=== PATIENT | female | born 1960 | race Caucasian/White ===

== ENCOUNTER 2018-06-12 22:01 | Inpatient (IN) ==
[2018-06-12] MEDS ORDERED: Gadolinium Contrast Agent (WT Based) IV PRN (22:17)
[2018-06-12] MEDS ORDERED: Ibuprofen 600 MG TABLET PO ONE (22:18)
--- NOTE | 2018-06-12 22:37 | Emergency Department Note ---
Disposition Clinical Impression: Paralysis of both lower limbs, Bilateral leg paresthesia Disposition: Admitted As Inpatient Condition: Fair Referrals: Alexis Gaytan DO [Primary Care Provider] - Forms: ED Satisfaction Letter Time of Disposition: 01:42 Neuro HPI - General Chief Complaint: ED Neuro Symptoms/Deficit Stated Complaint: Numbness in Legs Time Seen by Provider: 06/12/18 22:04 Source: patient, family, EMS Mode of arrival: ambulatory Limitations: no limitations Nursing Notes Reviewed: Yes Vital Signs Reviewed: Yes - History of Present Illness HPI Narrative: 58-year-old female presented to the emergency department with bilateral leg numbness and weakness. Patient states that on Friday she started new medication Lexapro within her only new changes. She said that she was at work going to the bathroom when she said also and she started vomiting and had acute pain 8 out of 10 in her legs bilaterally and thenthey were numb and she was unable walk and unable to move them. She is not having any back pain says the pain is only in the legs radiating down the legs. She screams 8 out of 10 sharp stabbing pain. She says she does not have any feeling in them and is unable to walk or move them at all. Patient has no other acute findings no other pain anywhere else no headaches no recent falls no recent trauma. She has no loss of bladder or bowel movements. There is no headaches, blurry vision, neck pain, back pain, chest pain, shortness of breath, abdominal pain, fevers, chills, changes in balance, pain with urination. - Related Data Home Medications: Home Medications Medication Instructions Recorded Confirmed Escitalopram [Lexapro] 10 mg PO DAILY 06/12/18 06/12/18 Allergies/Adverse Reactions: Allergies Allergy/AdvReac Type Severity Reaction Status Date / Time No Known Allergies Allergy Verified 06/12/18 22:16 All systems ED: reviewed and negative except as stated. Review of Systems: As Per HPI Past Medical History - Past Medical History Attestation: Yes The following information was validated with the patient. Source: patient Medical history: Reports: diabetes, GERD, hypertension Psychiatric history: Reports: anxiety G[employer] C[employer] MECH[employer]IC history: Reports: no [employer] MECH[employer]IC history - Social History Smoking Status: Never smoker Smokeless Tobacco Status: No Alcohol use: Reports: none Drug use: Reports: none Physical Exam - General Limitations: no limitations General appearance: alert, in distress - Head Head exam: atraumatic, normocephalic, normal inspection - Eye Eye exam: Present: normal appearance, PERRL, EOMI - ENT ENT exam: normal exam, normal oropharynx, mucous membranes moist - Neck Neck exam: Present: normal inspection, full ROM, trachea midline - Chest Chest inspection: Present: normal inspection, symmetric chest wall rise - Respiratory Respiratory exam: Present: normal lung sounds bilaterally. Absent: respiratory distress, accessory muscle use - Cardiovascular Cardiovascular exam: Present: regular rate, normal rhythm, normal heart sounds - Abdominal Exam Abdominal exam: Present: soft, Non-Tender, normal bowel sounds. Absent: tenderness, distention, guarding, rebound, rigidity - Extremities Exam Extremities exam: Absent: tenderness, pedal edema - Expanded Upper Extremity Exam Shoulder exam: Present: normal inspection, full ROM Arm exam: Present: normal inspection, full ROM Elbow exam: Present: normal inspection, full ROM Forearm/Wrist exam: Present: normal inspection, full ROM Hand exam: Present: normal inspection, full ROM Vascular exam: Normal: capillary refill, radial pulse - Expanded Lower Extremity Exam Neurovascular/Tendon exam: Present: normal capillary refill, motor deficit, sensory deficit, other (Did use needle and poked both lower extremities patient did not wince or say that she felt that him at all.). Absent: pulse deficit Gait: unable to bear weight - Back Exam Back exam: Present: normal inspection, full ROM. Absent: tenderness, CVA tenderness (R), CVA tenderness (L) - Neurological Exam Neurological exam: Present: alert, oriented X3 - Skin Skin exam: Present: warm, dry, intact, normal color Course Course Narrative: Patient does not have focal sided weakness there is no signs of a stroke due to this stroke alert was not called. Patient only has bilateral numbness and motor deficit. Due to this we will have to get an MR with and without contrast of the thoracic and lumbar spine. Patient will be given Motrin for pain control will be given Ativan prior to the procedure for anxiety. We will also get basic labs including CBC and BMP. Disposition pending results Vital Signs Temperature 97.5 F L 06/12/18 22:05 Pulse Rate 72 06/12/18 22:05 Respiratory Rate 20 06/12/18 22:05 Blood Pressure 176/92 06/12/18 22:05 O2 Sat by Pulse Oximetry 100 06/12/18 22:05 Temperature 97.5 F L 06/12/18 22:05 Pulse Rate 76 06/13/18 00:19 Respiratory Rate 16 06/13/18 00:19 Blood Pressure 176/84 06/13/18 00:19 O2 Sat by Pulse Oximetry 96 06/13/18 00:19 Oxygen Delivery Oxygen Delivery Room Air Neuro Symptoms/Deficit - MDM Narrative Medical decision making narrative: MR came back no acute findings. Patient did have a hypokalemia as well had an acute kidney injury this most likely is not secondary to patient's paralysis or paresthesias or weakness. I reevaluated patient she still unable to have any motor sensation in her lower extremities from the hips down. She still has no sensation. Due to this and being unable to walk we felt patient did need to be admitted. I did replace patient's potassium as well as give a liter of fluids for the AK I as well as hypokalemia. This most likely is peripheral there is no there is low likelihood this could be central as it is bilaterally in the lower extremities there is no unilateral focal deficits. So CT head was thought about but not ordered. I spoke with the hospitalist Dr. Ace who agreed to a dmit the patient to their service. Patient admitted in stable condition. Lumbar Spine MRI 06/12/18 22:17 IMPRESSION: 1. Motion degraded examination. 2. Mild central spinal canal narrowing at L4-L5. 3. Mild bilateral foraminal narrowing at L5-S1, left side greater than right. 4. Please note that the spine was labeled such that there is a transitional S1 type vertebral body. D/ / Godfrey Casiano MD / Godfrey Casiano MD Interpreting Provider: Godfrey Casiano MD Thoracic Spine MRI 06/12/18 22:17 IMPRESSION: No acute abnormality of the thoracic spine. D/ / Christian Sher / Christian Sher Interpreting Provider: Christian Sher - Medical Records Medical records reviewed: Yes I reviewed the patient's medical records. - Lab Data Lab results reviewed: Yes I reviewed the patient's lab results. Result diagrams: 06/12/18 22:38 06/12/18 22:38 Lab Results 06/12/18 06/12/18 Range/Units 22:38 22:38 WBC 17.1 H (4.3-11.1) K/mcL RBC 4.30 (3.82-4.97) M/mcL Hgb 9.3 L (11.5-15.4) g/dL Hct 31.2 L (35.3-44.9) % MCV 72.6 L (83.0-100.0) fL MCH 21.6 L (28.0-33.3) pg MCHC 29.8 L (31.6-35.5) g/dL RDW 15.5 H (11.5-14.5) % Plt Count 440 H (140-400) K/mcL MPV 9.7 (9.4-12.4) fL Immature Gran % 2.2 (0-4) % Seg Neutrophils % 79.5 % Lymphocytes % 10.6 % Monocytes % 7.1 % Eosinophils % 0.2 % Basophils % 0.4 % Neutrophils # 13.6 H (1.6-8.9) K/mcL Lymphocytes # 1.8 (0.6-4.6) K/mcL Monocytes # 1.2 (0.0-1.3) K/mcL Eosinophils # 0.0 (0.0-0.6) K/mcL Basophils # 0.1 (0.0-0.2) K/mcL Sodium 134 L (136-145) mEq/L Potassium 3.4 L (3.5-5.1) mEq/L Chloride 97 L (98-107) mEq/L Carbon Dioxide 13 L (23-29) mEq/L BUN 25 H (6-20) mg/dL Creatinine 2.33 H (0.60-1.20) mg/dL Est GFR ( Amer) 26 L (> 60) Est GFR (Non-Af Amer) 22 L (> 60) BUN/Creatinine Ratio 11 (6-26) Glucose 289 H (70-105) mg/dL Calculated Osmolality 293 (280-300) Calcium 9.9 (8.6-10.3) mg/dL - Radiology Data Radiology results reviewed: Yes I reviewed the patient's radiology results. TPA Checklist - LKW: 3-4.5 hrs Add. Warnings/Precautions Patient/family understanding: The patient/family members have been counseled and understood the risk, benefit, and alternatives of treatment.
[2018-06-12 22:57] LABS: Basophils # 0.1 K/mcL (0.0-0.2); Basophils % 0.4 %; Eosinophils % 0.2 %; Hematocrit 31.2 % (35.3-44.9); Hemoglobin 9.3 g/dL (11.5-15.4); Immature Granulocytes % 2.2 % (0-4); Lymphocytes # 1.8 K/mcL (0.6-4.6); Lymphocytes % 10.6 %; Mean Corpuscular HGB Conc 29.8 g/dL (31.6-35.5); Mean Corpuscular Hemoglobin 21.6 pg (28.0-33.3); Mean Corpuscular Volume 72.6 fL (83.0-100.0); Mean Platelet Volume 9.7 fL (9.4-12.4); Monocytes # 1.2 K/mcL (0.0-1.3); Monocytes % 7.1 %; Neutrophils # 13.6 K/mcL (1.6-8.9); Platelet Count 440 K/mcL (140-400); Red Cell Distribution Width 15.5 % (11.5-14.5); Segmented Neutrophils % 79.5 %
[2018-06-12] MEDS ORDERED: Ondansetron ODT 4 MG TAB.RAPDIS SL ONE (22:58)
[2018-06-12] MEDS ORDERED: *HR* LORazepam 2 MG/ML VIAL IVP ONE ×2 (23:03→23:48)
--- NOTE | 2018-06-12 23:10 | Emergency Department Note ---
Disposition Clinical Impression: Paralysis of both lower limbs, Bilateral leg paresthesia Disposition: Admitted As Inpatient Condition: Fair General Adult HPI - General Chief complaint: ED Neuro Symptoms/Deficit Stated complaint: Numbness in Legs Time Seen by Provider: 06/12/18 22:04 Source: patient, family, EMS Mode of arrival: ambulatory Limitations: no limitations Nursing Notes Reviewed: Yes Vital Signs Reviewed: Yes - History of Present Illness Pain Scale: 10 - Related Data Home Medications Medication Instructions Recorded Confirmed Escitalopram [Lexapro] 10 mg PO DAILY 06/12/18 06/12/18 Allergies Allergy/AdvReac Type Severity Reaction Status Date / Time No Known Allergies Allergy Verified 06/12/18 22:16 Past Medical History - Past Medical History Medical history: Reports: diabetes, GERD, hypertension Psychiatric history: Reports: anxiety [employer] WORKER history: Reports: no [employer] WORKER history - Social History Smoking Status: Never smoker Smokeless Tobacco Status: No Alcohol use: Reports: none Drug use: Reports: none Physical Exam - General Limitations: no limitations General appearance: alert, in distress Course Vital Signs Temperature 97.5 F L 06/12/18 22:05 Pulse Rate 72 06/12/18 22:05 Respiratory Rate 20 06/12/18 22:05 Blood Pressure 176/92 06/12/18 22:05 O2 Sat by Pulse Oximetry 100 06/12/18 22:05 Temperature 97.5 F L 06/12/18 22:05 Pulse Rate 76 06/13/18 00:19 Respiratory Rate 16 06/13/18 02:43 Blood Pressure 174/66 06/13/18 02:43 O2 Sat by Pulse Oximetry 96 06/13/18 00:19 Oxygen Delivery Oxygen Delivery Room Air Medical Decision Making - Lab Data Lab results reviewed: Yes I reviewed the patient's lab results. Result diagrams: 06/12/18 22:38 06/12/18 22:38 Lab Results 06/12/18 06/12/18 Range/Units 22:38 22:38 WBC 17.1 H (4.3-11.1) K/mcL RBC 4.30 (3.82-4.97) M/mcL Hgb 9.3 L (11.5-15.4) g/dL Hct 31.2 L (35.3-44.9) % MCV 72.6 L (83.0-100.0) fL MCH 21.6 L (28.0-33.3) pg MCHC 29.8 L (31.6-35.5) g/dL RDW 15.5 H (11.5-14.5) % Plt Count 440 H (140-400) K/mcL MPV 9.7 (9.4-12.4) fL Immature Gran % 2.2 (0-4) % Seg Neutrophils % 79.5 % Lymphocytes % 10.6 % Monocytes % 7.1 % Eosinophils % 0.2 % Basophils % 0.4 % Neutrophils # 13.6 H (1.6-8.9) K/mcL Lymphocytes # 1.8 (0.6-4.6) K/mcL Monocytes # 1.2 (0.0-1.3) K/mcL Eosinophils # 0.0 (0.0-0.6) K/mcL Basophils # 0.1 (0.0-0.2) K/mcL Sodium 134 L (136-145) mEq/L Potassium 3.4 L (3.5-5.1) mEq/L Chloride 97 L (98-107) mEq/L Carbon Dioxide 13 L (23-29) mEq/L BUN 25 H (6-20) mg/dL Creatinine 2.33 H (0.60-1.20) mg/dL Est GFR ( Amer) 26 L (> 60) Est GFR (Non-Af Amer) 22 L (> 60) BUN/Creatinine Ratio 11 (6-26) Glucose 289 H (70-105) mg/dL Calculated Osmolality 293 (280-300) Calcium 9.9 (8.6-10.3) mg/dL - Radiology Data Radiology results reviewed: Yes I reviewed the patient's radiology results. Lumbar Spine MRI 06/12/18 22:17 IMPRESSION: 1. Motion degraded examination. 2. Mild central spinal canal narrowing at L4-L5. 3. Mild bilateral foraminal narrowing at L5-S1, left side greater than right. 4. Please note that the spine was labeled such that there is a transitional S1 type vertebral body. D/ / Godfrey Casiano MD / Godfrey Casiano MD Interpreting Provider: Godfrey Casiano MD Thoracic Spine MRI 06/12/18 22:17 IMPRESSION: No acute abnormality of the thoracic spine. D/ / Christian Sher / Christian Sher Interpreting Provider: Christian Sher Attestation Statement - Attestation Attestation: I, Gil James MD, personally evaluated this patient and discussed their management with the resident physician. I reviewed the resident's note and agree with the documented findings, medical decision making, and plan of care. 58-year-old female presents to the emergency department with a complaint of acute onset of numbness and weakness in the lower extremities about 9 PM this evening. She denies any fall or injury. She states that she was at work and was standing when her leg suddenly started feeling numb and she had her coworkers assisted her into the cooler. Then her legs became totally numb and she could not move them. She does complain of pain in both legs from the hips down. No back pain. No abdominal pain. She has had no difficulty with urination or bowel movements. No incontinence of stool or urine. No fever. On examination patient is a well-developed well-nourished female in no acute distress. She is alert and oriented 3. There is no cyanosis or diaphoresis. Sounds are clear and equal bilaterally. Heart regular rate and rhythm. Abdomen soft and nontender with normal bowel sounds. No thoracic or lumbar tenderness noted. Patient's lower extremities are flaccid and she will not move or lift her lower extremities. She will not wiggle her toes. He denies any sensation from the hips down bilaterally. Labs reviewed. MRI of thoracic and lumbar spine obtained and showed no acute abnormality to account for patient's symptoms. The hospitalist, Dr. Ace, was consulted and accepted admission of the patient.
[2018-06-12 23:12] LABS: Calcium 9.9 mg/dL (8.6-10.3); Potassium 3.4 mEq/L (3.5-5.1)
[2018-06-12] MEDS ORDERED: *HR* FentaNYL (PF) 100 MCG/2 ML VIAL IVP ONE (23:49)
[2018-06-13] MEDS ORDERED: 0.9 % Sodium Chloride 1,000 ML IVC ONE ×2 (01:17→06:09)
[2018-06-13] MEDS ORDERED: Potassium Chloride Elixir 20 MEQ/15 ML UDC PO ONE (02:30)
[2018-06-13 03:55] LABS: Basophils # 0.1 K/mcL (0.0-0.2); Basophils % 0.2 %; Hematocrit 28.8 % (35.3-44.9); Hemoglobin 8.7 g/dL (11.5-15.4); Immature Granulocytes % 2.2 % (0-4); Lymphocytes # 1.4 K/mcL (0.6-4.6); Lymphocytes % 6.7 %; Mean Corpuscular HGB Conc 30.2 g/dL (31.6-35.5); Mean Corpuscular Hemoglobin 22.3 pg (28.0-33.3); Mean Corpuscular Volume 73.7 fL (83.0-100.0); Mean Platelet Volume 9.9 fL (9.4-12.4); Monocytes # 0.9 K/mcL (0.0-1.3); Monocytes % 4.6 %; Neutrophils # 17.6 K/mcL (1.6-8.9); Nucleated Red Blood Cells 0.1 /100 WBC (0); Platelet Count 386 K/mcL (140-400); Red Blood Count 3.91 M/mcL (3.82-4.97); Red Cell Distribution Width 15.7 % (11.5-14.5); Segmented Neutrophils % 86.3 %
[2018-06-13] MEDS ORDERED: Naloxone 0.4 MG/ML INJ IVP PRN (04:09)
[2018-06-13] MEDS ORDERED: *HR* OxyCODONE Immed Rel 5 MG TABLET PO PRN (04:09)
[2018-06-13] MEDS ORDERED: *HR* HYDROcodone/Acet 5/325 mg TABLET PO PRN (04:09)
[2018-06-13] MEDS ORDERED: Acetaminophen 325 MG TABLET PO PRN (04:09)
[2018-06-13] MEDS ORDERED: Dextrose Gel 15 GM/37.5 ML TUBE PO PRN ×2 (04:10)
[2018-06-13] MEDS ORDERED: *HR* Dextrose 50 % in Water (Syg) 50 ML SYRINGE IVP PRN (04:10)
[2018-06-13] MEDS ORDERED: D5% in Water 1,000 ML IVC PRN (04:10)
[2018-06-13 04:15] LABS: Calcium 9.1 mg/dL (8.6-10.3); Potassium 4.1 mEq/L (3.5-5.1)
[2018-06-13] MEDS ORDERED: 0.9 % Sodium Chloride 1,000 ML IVC SCH (04:15)
[2018-06-13 05:32] LABS: Bilirubin,Urine Negative (Negative); Blood,Urine Large (Negative); Clarity,Urine Cloudy (Clear); Color,Urine Yellow (Yellow); Glucose,Urine (UA) >=1000 mg/dL (Normal); Ketones,Urine Trace mg/dL (Negative); Leukocyte Esterase,Urine Negative (Negative); Nitrite,Urine Negative (Negative); PH,Urine 5.5 pH Units (5.0-8.0); Protein,Urine 100 mg/dL (Neg-Trace); Specific Gravity,Urine 1.019 (1.010-1.025); Urobilinogen,Urine Normal (Normal)
[2018-06-13 05:34] LABS: RBC,Urine 15-30 per hpf (0-3); WBC,Urine 0-3 per hpf (0-3)
[2018-06-13] MEDS ORDERED: Isovue-370 500 ML INFUS..BTL IV ONE ×3 (05:41→06:08)
[2018-06-13 05:42] LABS: Amphetamine Screen,Urine Negative ng/mL (Cutoff=1000); Barbiturate Screen,Urine Negative ng/mL (Cutoff=200); Benzodiazepines Screen,Urine Negative ng/mL (Cutoff=200); Cannabinoid Screen,Urine Negative ng/mL (Cutoff = 50); Cocaine Screen,Urine Negative ng/mL (Cutoff= 300); Opiate Screen,Urine Negative ng/mL (Cutoff=300); Phencyclidine Screen,Urine Negative ng/mL (Cutoff=25)
[2018-06-13 05:46] LABS: Bacteria,Urine Few per hpf (None-Few); Hyaline Casts,Urine Few per lpf (None-Few); Squamous Epithelial Cell,Urine Few per lpf (None-Few)
--- NOTE | 2018-06-13 06:31 | Internal Med History&Physical ---
Date of Encounter: 06/13/18 Time of Encounter: 05:45 Internal Medicine - H&P: HPI Chief complaint: Lower extremity weakness/numbness History of present illness: Ms. Alonzo is a 58 year old female with a past medical history of hypertension, GERD and diabetes who presents to the ED with a chief complaint of bilateral lower extremity numbness and weakness. Patient states that she was in her usual state of health working at her job as a service counter cashier into the evening. Ar ound 8:45 she states that she had something sweet to eat. Around 9 PM she went to go use the bathroom and vomited up some of which she had just eaten. Shortly after using the bathroom, patient noted numbness and tingling in her lower extremities bilaterally followed by significant pain 10 out of 10 in her legs below the knees. Patient states she went to sit down and the pain encompassed the entire legs. She has had progressive weakness and numbness in her lower legs since. Her boss contacted her and EMS and was she brought into the hospital. Upon arrival patient was noted to be hypertensive with a blood pressure of 176/92. Physical examination in the ED was notable for flaccid paralysis and paresis of her lower extremities bilaterally. Labs significant for an elevated white count, anemia, elevated creatinine. MRI of the thoracic and lumbar spine was performed which showed mild central spinal canal narrowing at L4-L5 and mild bilateral foraminal narrowing at L5-S1. Per ED report patient had bilateral lower extremity pulses and warmth of her extremities to palpation. I was contacted by the nurse around 5:24 AM, prior to my assessment of the patient, who informed me that he was unable to obtain pulses bilaterally in the patient's lower extremities via Doppler. When I arrived to assess the patient, she was lying in bed in no acute distress. Her lower extremities were cold to palpation. She was unable to move either limb. Sensation was absent from the mid thigh down to the feet bilaterally. I was not able to palpate pulses from the femoral arteries down. Due to concern for a vascular compromise, I reached out to Dr. Richards with vascular surgery to discuss the case and the decision was made to obtain a CT angiogram of the chest down despite the patient being in acute kidney failure. CT angios obtained from the chest down which showed occlusion of the aorta proximal to the bifurcation into the common iliacs as well as PE. Dr. Valdovinos reviewed the imaging and is evaluating the patient for possible surgical intervention versus transfer to [place]. Past Med Surg Social Fam HX - Past Medical History Medical history: diabetes, GERD, hypertension Additional medical history: brain tumor Psychiatric history: anxiety - Past Surgical History Additional surgical history: brain tumor removed, left shoulder scope (02/07) - Social History Smoking Status: Never smoker Smokeless Tobacco Status: No Alcohol use: none Drug use: none - Family History Father Living Status: Hx Family Cardiac Disorders: Yes (Coronary artery disease) Hx Family Respiratory Disorders: Yes (COPD) Hx Family Cancer: Yes (Lung cancer) Hx Family Endocrine Disorder: Yes (Hypertension) Mother Race: Cause of : Pneumonia Hx Family Cardiac Disorders: Yes (Coronary artery disease) Hx Family Respiratory Disorders: Yes (COPD) Hx Family Endocrine Disorder: Yes (Hypertension) Internal Medicine - H&P: Meds Escitalopram [Lexapro] 10 mg PO DAILY 06/12/18 [History] Aspirin Enteric Coated [Aspirin EC] 325 mg PO DAILY tablet. 06/13/18 [Rx] Heparin 3,100 unit IVP Q6H PRN vial 06/13/18 [Rx] Heparin 6,200 unit IVP Q6HR PRN vial 06/13/18 [Rx] metFORMIN [Glucophage] 500 mg PO BIDWM 06/13/18 [History] Allergy/AdvReac Type Severity Reaction Status Date / Time No Known Allergies Allergy Verified 06/12/18 22:16 All Systems PM: A 10-system review of systems was performed and is negative for pertinent findings except as documented above in the HPI. - Constitutional Constitutional: no chills, no fever(s), no night sweats - EENT Eyes: no change in vision, no discharge, no pain, no photophobia Ears: no ear discharge, no ear pain, no tinnitus Nose, mouth and throat: no dysphagia, no nasal discharge, no neck pain, no sore throat - Cardiovascular Cardiovascular ROS IM: no chest pain, no diaphoresis, no dyspnea, no lightheadedness, no palpitations, no syncope - Respiratory Respiratory: no cough, no dyspnea, no wheezing, no excessive phlegm production - Gastrointestinal Gastrointestinal: no abdominal pain, no diarrhea, no hematemesis, no hematochezia, no melena, no nausea, no vomiting - Genitourinary Genitourinary: no change in urinary stream, no dysuria, no flank pain, no hematuria - Musculoskeletal Musculoskeletal ROS IM: no numbness, no tingling - Integumentary Integumentary IM: no rash, no unusual bruising - Neurological Neurological ROS: no confusion, no convulsions, no focal weakness, no numbness, no tingling, no tremor(s) - Hematologic/Lymphatic Hematologic/Lymphatic: no easy bruising - Constitutional Vitals: Temp Pulse Resp BP Pulse Ox 97.6 F 77 16 179/89 2 06/13/18 04:30 06/13/18 04:30 06/13/18 04:30 06/13/18 04:30 06/13/18 04:30 Exam: General: Alert and oriented 3; flat affect Skin:Normal color, no rash, no lesions. HEENT:EOM, pupils equal, round and reactive. Cardiovascular:Normal S1 & S2, no rubs, murmurs or gallops. No JVD. Pulse regular. Lungs:Normal breath sounds, no wheezes or crackles. Abdomen:Soft, non-tender, no rigidity. Extremities:No deformity, cool to palpation; no edema; female oral, popliteal, DP and PT pulses absent bilaterally Neurological: Flaccid paralysis from the waist down. Sensation absent from the mid thigh distally. Radial nerves II through XII intact. Muscle strength in the upper extremities 5 out of 5 bilaterally. Pulses:Carotid and radial pulses normal +2. Rest of the physical exam is non contributory Internal Med - H&P Results - Labs CBC & Chem 7: 06/13/18 03:34 06/13/18 03:34 Labs: Short CBC 06/12/18 06/13/18 Range/Units 22:38 03:34 WBC 17.1 H 20.4 H (4.3-11.1) K/mcL Hgb 9.3 L 8.7 L (11.5-15.4) g/dL Hct 31.2 L 28.8 L (35.3-44.9) % Plt Count 440 H 386 (140-400) K/mcL Neutrophils # 13.6 H 17.6 H (1.6-8.9) K/mcL BMP 06/12/18 06/13/18 22:38 03:34 Sodium 134 L 134 L Potassium 3.4 L 4.1 Chloride 97 L 101 Carbon Dioxide 13 L 16 L BUN 25 H 28 H Creatinine 2.33 H 2.31 H Glucose 289 H 275 H Calcium 9.9 9.1 Urine 06/13/18 Range/Units 05:15 Urine Color Yellow (Yellow) Urine Clarity Cloudy A (Clear) Urine pH 5.5 (5.0-8.0) pH Units Ur Specific [place] 1.019 (1.010-1.025) Urine Protein 100 H (Neg-Trace) mg/dL Urine Glucose (UA) >=1000 H (Normal) mg/dL - Impressions ITS Impressions Lumbar Spine MRI 06/12/18 22:17 IMPRESSION: 1. Motion degraded examination. 2. Mild central spinal canal narrowing at L4-L5. 3. Mild bilateral foraminal narrowing at L5-S1, left side greater than right. 4. Please note that the spine was labeled such that there is a transitional S1 type vertebral body. D/ / Godfrey Casiano MD / Godfrey Casiano MD Interpreting Provider: Godfrey Casiano MD Thoracic Spine MRI 06/12/18 22:17 IMPRESSION: No acute abnormality of the thoracic spine. D/ / Christian Sher / Christian Sher Interpreting Provider: Christian Sher - Assessment and plan (1) Bilateral leg paresthesia Status: Acute Assessment and plan: Acute onset b/l lower extremity parasthesias from the mid thigh distally in the setting of infrarenal occlusion of the aorta. Patient continues not to have loss no sensation from the mid thighs distally. Patient reports that she recently started Lexipro on Friday. Affect remains flat and does not seem to express much concern for her paresis or paralysis. Case discussed with Dr. Richards with Vascular surgery who cannot find a clear correlation at this time between the two. Although he is confident he can successfully revascularize the patient, he is unsure if this will resolve her parasthesia. Patient will likely need neurology on board as well. Await further surgical evaluation. (2) Paralysis of both lower limbs Status: Acute Assessment and plan: Flacid paralysis of the LE b/l below the waist. MRI thoracic/lumbar spine shows no acute abnormality of the thoracic spine with mild central spinal canal narrowing at L4-L5. Mild bilateral foraminal narrowing at L5-S1, left side greater than right. Per ED, they reported warmth and distal pulses on their initial assessment. This is clearly not the case on my initial assessment. See HPI. She remains A/O x3 but affect is flat and appears to be indifferent to her current situation. Etiology of her paralysis remains unclear, aside from correlation with Aortic occlusion. See above for management. (3) Occlusion of aorta Status: Acute Assessment and plan: Patient found to have absent palpable pulses b/l from the femoral arteries distally. We were able to obtain pulses on doppler of the femoral arteries b/l and right popliteal. CT Aorta with runoff shows Complete occlusion of the distal abdominal aorta due to occlusive mural thrombus. Underlying etiology is not determined. The extent of thrombosis is difficult to evaluate with very limited contrast distal to the initial site of occlusion. Reconstitution of the right external iliac artery due to collateral flow with a normal runoff to the level of the popliteal artery. Evaluation of vessels below the right popliteal artery can not be provided as the contrast bolus is not reached beyond this point. Reconstitution in the left lower extremity is not demonstrated. Case discussed with Vascular. Await decision for revascularization here vs transfer. (4) Acute kidney injury Status: Acute Assessment and plan: Acute kidney injury with what appears to be in the setting of normal renal function at baseline. Etiology at this time unclear as occlussion of aorta is infrareanal and there appears to have normal perfusion of Kidneys based on CTA. Patient was given fluid bolus in the ED with repeat BMP showing minimal improvement. Patient was given an additional fluid bolus of [address] scan and now appears to be clinical congested from a respiratory standpoint. Will hold fluids for now with revascularization taking precedence at this point. (5) Pulmonary embolus Status: Acute Qualifiers: Pulmonary embolism type: other Chronicity: acute Acute cor pulmonale presence: without acute cor pulmonale Qualified Code(s): I26.99 - Other pulmonary embolism without acute cor pulmonale (6) Diabetes Status: Chronic Qualifiers: Diabetes mellitus type: type 2 Diabetes mellitus computer terminal operator insulin use: without computer terminal operator use Diabetes mellitus complication status: with circulatory complication Diabetes mellitus complication detail: with other circulatory complications Qualified Code(s): E11.59 - Type 2 diabetes mellitus with other circulatory complications (7) Essential hypertension Status: Chronic - Time Spent With Patient Total time spent is greater than 50% in coordination of care (as documented) at patient's floor/unit and/or counseling patient:
--- NOTE | 2018-06-13 06:38 | Event Note ---
Date of Encounter: 06/13/18 Time of Encounter: 06:35 The patient was unable to be physically assessed in the ER prior to arrival to the floor. On my discussion with the ER physicians now, they state that at the time of their exam her lower extremities were warm and had pulses. Therefore her current cold, pale and absent DP & TP pulses seems to be a new and evolving occurrence warranting urgent vascular evaluation. Dr Esquivel has contacted the vascular surgeon integration lead and a CT angio with runoff will be done STAT.
[2018-06-13] MEDS ORDERED: Insulin LISPRO 300 UNITS/3 ML VIAL SQ SCH (07:30)
[2018-06-13 07:57] VITALS: BP 143/79
--- NOTE | 2018-06-13 08:21 | Discharge Summary ---
<Papi Chávez N - Last Filed: 06/13/18 08:19> - NOTES TO OUTPATIENT PROVIDER Notes to Outpatient Provider: follow up patient after surgery. Patient will require outpatient follow up with vascular surgery. Orders not resulted at time of discharge: Pending orders 06/13/18 02:08 Drug Screen, Urine [UCHEM] Stat 06/13/18 04:17 MR head/brain wo con [MR] Routine EV carotid duplex imaging BI Routine 06/13/18 04:22 EV echocardiogram Routine 06/13/18 05:41 US retroperitoneal comp [US] Routine Date of Encounter: 06/13/18 Time of Encounter: 08:19 - Discharge Diagnosis (1) Occlusion of aorta Priority: Primary Status: Acute Assessment and Plan: Per vascular surgery recommendations, patient will be transported to facility with higher level of care for urgent surgical evaluation and possibly intervention for the aortic thrombus. On physical exam patient's distal extremities are cold, no pulses palpable, they appear pale. (2) Pulmonary embolus Priority: Secondary Status: Acute Assessment and Plan: CT angiogram revealed findings of right lower lobar pulmonary artery acute segmental pulmonary embolus. Patient is currently not complaining of any chest pain or shortness of breath. Hospital course: Patient is 58-year-old female with a history of hypertension and diabetes who presented to the emergency department with one-day history of bilateral lower extremity flaccidity and paresthesias. Patient states that she was at work at an approximate 9 PM when she initially noted that she had numbness in both legs. This was followed by inability to move either extremity a few minutes later and severe pain. Patient was transported to the emergency department via EMS where an MRI thoracic and lumbar spine was performed which was unremarkable for any significant spinal compression. Upon arrival to the floor, nursing reported the patient had cold and pulseless extremities. She was evaluated by the admitting physician and a Doppler confirmed the patient did not have pulses in either lower extremity. Vascular surgery was called and recommended immediate CT angiogram with runoff of the aorta and b/l lower extremities. CTA showed complete occlusion of the distal abdominal aorta with mural thrombus. There was also an incidental acute pulmonary embolism of segmental branches in the right lower lobe pulmonary artery as well, patient is not experiencing any chest pain or shortness of breath at this time. Patient meets all criteria of acute limb ischemia (parasthesias, pain, pallor, pulselessness, poikilothermia, and paralysis of the lower extremities bilaterally). Will require urgent surgical evaluation and will be transferred. - Time Spent with Patient Total time spent providing and/or coordinating discharge services: - Discharge Medications Home Medications: RX: Escitalopram [Lexapro] 10 mg PO DAILY 06/12/18 [History] RX: Aspirin Enteric Coated [Aspirin EC] 325 mg PO DAILY tablet. 06/13/18 [Rx] RX: Heparin 3,100 unit IVP Q6H PRN vial 06/13/18 [Rx] RX: Heparin 6,200 unit IVP Q6HR PRN vial 06/13/18 [Rx] RX: metFORMIN [Glucophage] 500 mg PO BIDWM 06/13/18 [History] Allergies/Adverse Reactions: Allergy/AdvReac Type Severity Reaction Status Date / Time No Known Allergies Allergy Verified 06/12/18 22:16 Date of admission: 06/13/18 02:11 Primary care physician: Jaime Gaytan DO Consults: 06/13/18 04:18 Consult to Neurology [CONS] Routine Consulting Provider: [facility] Reason for Consult: Stroke Call Completed: No Discharging clinician: Papi Chávez Anticipated date of discharge: 06/13/18 - Constitutional Vitals: Temp Pulse Resp BP Pulse Ox 97.6 F 84 20 143/79 97 06/13/18 07:57 06/13/18 07:57 06/13/18 07:57 06/13/18 07:57 06/13/18 07:57 Exam: Constitutional: Laying in bed, does not appear to be in significant pain or distress Neck: normal to inspection, trachea midline Chest: symmetrical chest wall rise, no deformity noted Cardiovascular: regular rate and rhythm, no murmurs Respiratory: clear to auscultation bilaterally Abdomen: soft, nontender on light palpation. deep palpation deferred due to known presence of mural thrombus of aorta. Extremiteis: NO palpable pulses of the lower extremities bilaterally. The extremities are significantly cold. Patient unable to move extremities or wiggle her toes. Psych: flat affect and withdrawn, not anxious. Skin: pallor of the lower extremities - Patient Status Disposition: Transfer Critical Access Hosp Condition: Serious Functional capacity at discharge: bed bound Overall status at discharge: patient is not back to baseline - Discharge Instructions Follow Up With: Alexis Gaytan DO [Primary Care Provider] - - Diet and Activity Diet: other (NPO) <Eleazar Soliz - Last Filed: 06/13/18 15:58> Orders not resulted at time of discharge: Pending orders 06/13/18 02:08 Drug Screen, Urine [UCHEM] Stat Date of Encounter: 06/13/18 - Discharge Diagnosis (1) Occlusion of aorta Status: Acute (2) Bilateral leg paresthesia Priority: Secondary Status: Acute (3) Paralysis of both lower limbs Priority: Secondary Status: Acute (4) Pulmonary embolus Status: Acute Qualifiers: Pulmonary embolism type: other Chronicity: acute Acute cor pulmonale presence: without acute cor pulmonale Qualified Code(s): I26.99 - Other pu lmonary embolism without acute cor pulmonale (5) Chronic anemia Priority: Secondary Status: Chronic (6) Diabetes Priority: Secondary Status: Chronic Qualifiers: Diabetes mellitus type: type 2 Diabetes mellitus intermodal dispatcher insulin use: without intermodal dispatcher use Diabetes mellitus complication status: with circulatory complication Diabetes mellitus complication detail: with other circulatory complications Qualified Code(s): E11.59 - Type 2 diabetes mellitus with other circulatory complications (7) Essential hypertension Priority: Secondary Status: Chronic (8) Acute kidney injury Priority: Secondary Status: Acute Hospital course: Ms. Alonzo is a 58 year old female - Time Spent with Patient Total time spent providing and/or coordinating discharge services: 37min Date of admission: 06/13/18 07:56 Primary care physician: Jaime Gaytan DO - Constitutional Vitals: Temp Pulse Resp BP Pulse Ox 97.6 F 84 20 143/79 97 06/13/18 07:57 06/13/18 07:57 06/13/18 07:57 06/13/18 07:57 06/13/18 07:57 - Attending Attestation I examined this patient and my medical decision-making was reviewed with the Resident Physician on 06/13/18. I agree with the documented findings, disposition and treatment plan as described except to the extent set forth below. Ms Alonzo has been admitted for bilateral lower extremity weakness. She has been found to have acute aortic occlusion and R side PE. She has been urgently transferred to [facility]. Exam alert Dyspneic Heart not tachy Legs cold and white. Plan D/C urgently to [facility].
[2018-06-13] MEDS ORDERED: *HR* Heparin 5,000 UNIT/ML VIAL IVP PRN ×2 (08:28)
[2018-06-13] MEDS ORDERED: *HR* Heparin 5,000 UNIT/ML VIAL IVP ONE (08:28)
[2018-06-13] MEDS ORDERED: Heparin 25,000 UNIT/500 ML D5W 25,000 UNIT/500 ML BAG IVC SCH (08:30)
[2018-06-13] MEDS ORDERED: *HR* Heparin 5,000 UNIT/ML VIAL ONE (08:35)
--- NOTE | 2018-06-13 08:49 | Vascular/Endovasc Consult Note ---
Date of Encounter: 06/13/18 Time of Encounter: 07:30 Assessment and Plan (1) Occlusion of aorta Current Visit: Yes Status: Acute The patient has an acute infrarenal aortic occlusion. The occlusion extends into the bilateral common and internal iliac arteries. Her right external iliac femoral and proximal popliteal vessels are patent. On the left the occlusion extends through the external iliac femoral and popliteal vessels. No intravenous contrast is identified below the bilateral knees. Given the acute and severe onset of her symptoms, the extent of her occlusion and the prolonged flaccid paralysis of her bilateral lower extremities, the patient was informed that her paralysis may not be reversible and limb loss may be likely. A heparin drip and emergent thrombectomy was recommended for the patient for limb salvage. The patient and family then discussed the option for transfer to [facility]. [facility] was contacted. I spoke with Dr. Gregg at [facility] who agreed to accept the patient in transfer. She did state that the transfer would result in a delay of several hours until the patient could be operated on. After further discussion with the family regarding the delayed timing of surgery with transfer, the family continued to request transfer to [facility]. The patient and plan of care was discussed with the Hospitalist service and transfer arrangements were then made. (2) Pulmonary embolus Current Visit: Yes Status: Acute The patient has an acute right sided pulmonary emboli. She does report shortness of breath. She is currently on 2 L of oxygen with saturation of 97%. She will be started on intravenous heparin. Given the onset of acute arterial and venous thromboembolism a paradoxical embolus to be considered. Further evaluation with echocardiogram is recommended. Qualifiers: Pulmonary embolism type: other Chronicity: acute Acute cor pulmonale presence: without acute cor pulmonale Qualified Code(s): I26.99 - Other pulmonary embolism without acute cor pulmonale (3) Acute kidney injury Current Visit: Yes Status: Acute The patient has a significantly decreased GFR. Her creatinine is elevated. She had a normal creatinine and GFR earlier this year. The risks and has recently received intravenous contrast for her CT angiogram. The renal parenchyma appeared normal on CT angiogram without evidence of renal artery stenosis or occlusion. Aggressive fluid resuscitation and nephrology consultation recommended. (4) Chronic anemia Current Visit: Yes Status: Chronic The patient has evidence of chronic anemia. Hemoglobin is 8.7 this morning. She is hemodynamically stable without evidence of active blood loss. (5) Paralysis of both lower limbs Current Visit: Yes Status: Acute The patient has undergone MRI imaging which did not reveal an acute etiology for her symptoms. Her paralysis is likely related to her prolonged and profound pelvic and lower extremity ischemia. Given the acute onset and duration of her symptoms, the patient was informed that she may not recover from the paralysis. Neurology consultation is recommended. (6) Diabetes Current Visit: Yes Status: Chronic Qualifiers: Diabetes mellitus type: type 2 Diabetes mellitus terminal carman insulin use: without terminal carman use Diabetes mellitus complication status: with circulatory complication Diabetes mellitus complication detail: with other circulatory complications Qualified Code(s): E11.59 - Type 2 diabetes mellitus with other circulatory complications (7) Essential hypertension Current Visit: Yes Status: Chronic - History of Present Illness Consult date: 06/13/18 Requesting physician: Manuel Esquivel Consult reason: Absent pulses Chief complaint: Pain and paralysis in the bilateral lower extremities History of present illness: Ms. Alonzo is a 58 year old female with history of hypertension and diabetes reports that she was doing well until approximately 9 PM on 06/12/2018. At that time she is going to the restroom and upon rising she began vomiting and developed severe pain in her bilateral lower extremities. She did develop paresthesias and then ultimately paralysis. The patient was transported to [facility] and she was evaluated in the emergency room. As part of her evaluation she underwent an MRI which did not reveal acute pathology. The patient was then transferred to the floor. She was seen by the hospitalist service which identified an absent pulse exam this morning. Vascular surgery was in consultation for further evaluation. At the time of consultation the patient is alert and responsive. She denies any chest pain however she does report progressive shortness of breath. She reports anesthesia from the hips to the toes bilaterally. She currently denies any leg pain due to the anesthesia. Prior to 9 PM on 06/15/2018 the patient reports that she was able to ambulate without difficulty. She denies any prior leg pain or swelling. She denies a history of claudication, rest pain, ulceration or gangrene. She denies any prior chronic lower back pain or any prior neuropathy. Past Med Surg Social Fam HX - Past Medical History Medical history: diabetes, GERD, hypertension Additional medical history: brain tumor Psychiatric history: anxiety - Past Surgical History Additional surgical history: brain tumor removed, left shoulder scope (02/07) - Social History Smoking Status: Never smoker Smokeless Tobacco Status: No Alcohol use: none Drug use: none - Family History Father Living Status: Hx Family Cardiac Disorders: Yes (Coronary artery disease) Hx Family Respiratory Disorders: Yes (COPD) Hx Family Cancer: Yes (Lung cancer) Hx Family Endocrine Disorder: Yes (Hypertension) Mother Race: Cause of : Pneumonia Hx Family Cardiac Disorders: Yes (Coronary artery disease) Hx Family Respiratory Disorders: Yes (COPD) Hx Family Endocrine Disorder: Yes (Hypertension) Medications and Allergies Escitalopram [Lexapro] 10 mg PO DAILY 06/12/18 [History] Aspirin Enteric Coated [Aspirin EC] 325 mg PO DAILY tablet.dr 06/13/18 [Rx] Heparin 3,100 unit IVP Q6H PRN vial 06/13/18 [Rx] Heparin 6,200 unit IVP Q6HR PRN vial 06/13/18 [Rx] metFORMIN [Glucophage] 500 mg PO BIDWM 06/13/18 [History] Allergy/AdvReac Type Severity Reaction Status Date / Time No Known Allergies Allergy Verified 06/12/18 22:16 All Systems Review: The remainder of the systems were reviewed and are negative - Constitutional Constitutional: no chills, no fever(s) - EENT Eyes: no blurred vision - Cardiovascular Cardiovascular: dyspnea at rest, no chest pain at rest, no chest pain with exertion, no irregular heart rhythm - Gastrointestinal Gastrointestinal: no abdominal pain, no hematemesis, no hematochezia, no melena - Musculoskeletal Musculoskeletal: no back pain - Neurological Neurological: no abnormal speech, no dizziness, no syncope Exam Vital Signs, Last 4 Hours Temp Pulse Resp BP Pulse Ox 06/13/18 07:57 97.6 F 84 20 143/79 97 General: Present: Conversant, Well developed, Well nourished HEENT: Present: Atraumatic, Normocephaly, Trachea midline, Pupils equal Neck: Absent: JVD, Lymphadenopathy, Left Carotid bruit, Right Carotid bruit Cardiac: Present: Reg Rate and Rhythm, Normal S1 and S2 Lungs: Present: Normal Breath Sounds, No Wheeze, Rales, Rhonchi Neuro: Present: Alert and responsive, Other (Flaccid paralysis of the bilateral lower extremities) Abdomen: Present: Soft, Non-tender. Absent: Masses Vascular: Present: Capillary refill delayed, Pulse, absent (Bilateral femoral, popliteal, dorsalis pedis and posterior tibial pulses are absent). Absent: Cyanosis, Edema Skin: Present: Other (Modeling of the bilateral lower extremities) Musculoskeletal: Present: No Chest Wall Tenderness Consult Discharge Plan - Plan Referrals: Alexis Gaytan DO [Primary Care Provider] -
[2018-06-13] MEDS ORDERED: Aspirin Enteric Coated 325 MG Tablet PO SCH (09:00)
== END 2018-06-13 10:06 | disposition critical access hospital (66) | DRG 300 ==
LOC: 2NENU 22:01 → EMEROOARM 22:01 → SUATTDRO 06-13 02:11 → 2NENU 06-13 02:52
PROVIDERS: ADMIT Internal Medicine; ATTEND Internal Medicine